=== PATIENT | female | born 1960 | race African-American/Black ===

== ENCOUNTER 2019-02-10 06:22 | Emergency (ER) | payer MEDICAID ==
[~2019-02-10] VITALS: Ht 165.1 cm; Wt 95.3 kg
[2019-02-10 06:25] VITALS: Ht 165.1 cm; Wt 95.3 kg
[2019-02-10] MEDS ORDERED: NORVASC10 MG (06:26)
[2019-02-10] MEDS ORDERED: METFORMIN HCL500 M1 (06:26)
[2019-02-10] MEDS ORDERED: GLIMEPIRIDE2 MG (06:26)
[2019-02-10 06:40] LABS: BASOPHILS 0.5 % (0-2); EOSINOPHILS 3.2 % (0-7); HEMATOCRIT 40.3 % (36.0-48.0); HEMOGLOBIN 13.7 g/dL (12-16); IMMATURE GRANULOCYTES 0.2 % (0-5); LYMPHOCYTES 41.5 % (15-50); MCH 31.6 pg (26.0-34.0); MCV 92.9 fL (80.0-100.0); MEAN PLATELET VOLUME 9.7 fL (7.4-10.4); MONOCYTES 5.8 % (2-11); NEUTROPHILS 48.8 % (40-80); PLATELET COUNT 171 10x3/uL (130-400); RBC 4.34 10x6/uL (4.00-5.40); RDW 13.5 % (11.5-14.5); WBC 6.6 10x3/uL (4.8-10.8)
[2019-02-10 06:53] LABS: ALBUMIN 3.6 g/dL (3.4-5.0); ALKALINE PHOSPHATASE 113 U/L (46-116); ALT (SGPT) 34 U/L (10-68); BILIRUBIN - TOTAL 0.31 mg/dL (0.2-1.3); CALC OSMOLALITY 279 mosm/kg (275-300); CALCIUM 9.7 mg/dL (8.5-10.1); CARBON DIOXIDE 28.9 mmol/L (21.0-32.0); CHLORIDE - SERUM 102 mmol/L (98-107); CREATININE - SERUM 0.7 mg/dL (0.6-1.3); GLUCOSE 100 mg/dL (74-106); POTASSIUM - SERUM 4.5 mmol/L (3.5-5.1); PROTEIN - SERUM 8.3 g/dL (6.4-8.2); SODIUM 140 mmol/L (136-145); UREA NITROGEN 14 mg/dL (7-18); eGFR NON AFRICAN AMERICAN > 90 mL/min (90-120)
[2019-02-10] MEDS ORDERED: ZITHROMAX500 MG PO (07:01)
[2019-02-10] MEDS ORDERED: PROMETHAZINE W473 ML PO (07:01)
[2019-02-10] MEDS ORDERED: ALBUTEROL SULF8.5 GM INH (07:02)
[2019-02-10 07:20] LABS: PRO BNP 31 pg/mL (0-125); TROPONIN-I < 0.017 ng/mL (0.000-0.060)
[2019-02-10 07:48] VITALS: BP 142/68
== END 2019-02-10 07:48 | disposition home or self-care (01) ==
LOC: D.ER 06:22
PROVIDERS: Family Medicine
DX: J40 Bronchitis, not specified as acute or chronic (principal)

== ENCOUNTER 2020-08-27 17:38 | Emergency (ER) | payer SELFPAY ==
[~2020-08-27] VITALS: Ht 175.3 cm; Wt 119.5 kg
[~2020-08-27 17:38] MED LIST: ALBUTEROL SULF8.5 GM INH; GLIMEPIRIDE2 MG; METFORMIN HCL500 M1; NORVASC10 MG; PROMETHAZINE W473 ML PO; ZITHROMAX500 MG PO
[2020-08-27 17:49] VITALS: BP 193/70; Ht 175.3 cm; Wt 119.5 kg
[2020-08-27] MEDS ORDERED: COZAAR25 MG PO (17:53)
[2020-08-27] MEDS ORDERED: PEPCID40 MG PO (19:09)
[2020-08-27] MEDS ORDERED: ZYRTEC10 MG PO (19:09)
== END 2020-08-27 19:14 | disposition home or self-care (01) ==
LOC: D.ER 17:38
DX: J30.2 Other seasonal allergic rhinitis (principal); R05 Cough; R09.82 Postnasal drip; I10 Essential (primary) hypertension; E11.9 Type 2 diabetes mellitus without complications; Z79.84 Long term (current) use of oral hypoglycemic drugs